=== PATIENT | female | born 1950 | race Caucasian/White ===

== ENCOUNTER 2020-01-31 16:15 | Emergency (ER) | payer BC, OTHER ==
[2020-01-31 16:43] VITALS: BP 150/79; PULSE 104
--- NOTE | 2020-01-31 17:00 | EDM.PDOC ---
ED HPI GENERAL MEDICAL PROBLEM - General Chief Complaint: Respiratory Problem Stated Complaint: FEVER/CHILLS/SORE THROAT Time Seen by Provider: 01/31/20 16:26 Source of Information: Reports: Patient History Limitations: Reports: No Limitations - History of Present Illness INITIAL COMMENTS - FREE TEXT/NARRATIVE: Patient is a 69-year-old female who presents to the emergency department with request of being tested for COVID. She states this last Wednesday which was 4 days ago, she developed fever, chills, body aches, cough, nasal congestion, and sore throat. States that today she is feeling much better and would like to go back to work, however they are requiring a COVID test. States that her fever, chills, body aches, and cough have resolved. She does still have some mild nasal congestion. She denies any shortness of breath. On triage, patient was noted to be very slightly tachycardic at 104, blood pressure minimally elevated at 150/79. Oxygen saturation is 96% on room air. She is afebrile at 97.8 and respiratory rate is 18. Throat Pain Score (Numeric/FACES): 2 - Related Data Allergies Allergy/AdvReac Type Severity Reaction Status Date / Time No Known Allergies Allergy Verified 01/31/20 16:28 Home Meds: Home Meds Meloxicam 15 mg PO DAILY #14 tablet 06/05/16 [Rx] amLODIPine Besylate/Benazepril [Lotrel 10-20 mg Capsule] 1 tab PO DAILY 06/05/16 [History] Past Medical History Cardiovascular History: Reports: Hypertension Social & Family History - Tobacco Use Smoking Status *Q: Never Smoker Second Hand Smoke Exposure: No - Caffeine Use Caffeine Use: Reports: Coffee - Recreational Drug Use Recreational Drug Use: No - Living Situation & Occupation Occupation: Employed ED ROS GENERAL - Review of Systems Review Of Systems: Comprehensive ROS is negative, except as noted in HPI. ED EXAM, GENERAL - Physical Exam Exam: See Below General Appearance: Alert, WD/WN, No Apparent Distress Respiratory/Chest: No Respiratory Distress, Lungs Clear, Normal Breath Sounds, No Accessory Muscle Use, Chest Non-Tender Cardiovascular: Normal Peripheral Pulses, Regular Rate, Rhythm, No Edema, No Gallop, No JVD, No Murmur, No Rub Neurological: Alert, Oriented, CN II-XII Intact, Normal Cognition, Normal Gait, Normal Reflexes, No Motor/Sensory Deficits Psychiatric: Normal Affect, Normal Mood Skin Exam: Warm, Dry, Intact, Normal Color, No Rash Course - Vital Signs Last Recorded V/S: Last Vital Signs Temp 97.8 F 01/31/20 16:25 Pulse 104 H 01/31/20 16:25 Resp 18 01/31/20 16:25 BP 150/79 H 01/31/20 16:25 Pulse Ox 96 01/31/20 16:25 - Orders/Labs/Meds Orders: Active Orders 24 hr Category Date Time Status CORONAVIRUS COVID-19 PCR PHL Routine Lab 01/31/20 16:30 Ordered - Re-Assessments/Exams Free Text/Narrative Re-Assessment/Exam: 01/31/20 16:59 Patient's physical exam was normal. Her lung sounds are clear. Oxygen saturation 96% on room air. Vital signs are stable. We will complete a state lab coronavirus test today. She will be notified of results when available. Discussed that she should continue to self isolate until results are available. Return to ER for any worsening symptoms. Departure - Departure Time of Disposition: 16:59 Disposition: Home, Self-Care 01 Condition: Good Clinical Impression: Viral respiratory illness - Discharge Information *PRESCRIPTION DRUG MONITORING PROGRAM REVIEWED*: No *COPY OF PRESCRIPTION DRUG MONITORING REPORT IN PATIENT STEFANY: No Instructions: Viral Respiratory Infection, [id number] Referrals: PCP,Not In Area [Primary Care Provider] - Additional Instructions: You were seen in the emergency department today with request to be tested for Covid19 after having fever, chills, body aches, cough, sore throat and nasal congestion that started on Wednesday. While in the ER, your vital signs were normal. Your oxygen saturation was good. You have been tested for Covid19. The results of this generally take 48 to 72 hours. Recommend that you continue to isolate until results are available. Return to ER for any worsening symptoms. Sepsis Event Note (ED) - Evaluation Sepsis Screening Result: No Definite Risk - Focused Exam Vital Signs: Vital Signs Temp Pulse Resp BP Pulse Ox 01/31/20 16:25 97.8 F 104 H 18 150/79 H 96 - My Orders Last 24 Hours: My Active Orders 01/31/20 16:30 CORONAVIRUS COVID-19 PCR PHL Routine - Assessment/Plan Last 24 Hours: My Active Orders 01/31/20 16:30 CORONAVIRUS COVID-19 PCR PHL Routine
== END 2020-01-31 17:10 | disposition home or self-care (01) ==
LOC: JD.ED 16:15
DX: J98.8 Other specified respiratory disorders (principal); B97.89 Other viral agents as the cause of diseases classified elsewhere; I10 Essential (primary) hypertension; Z79.899 Other long term (current) drug therapy; Z20.828 Contact with and (suspected) exposure to other viral communicable diseases
CPT/HCPCS: 99282; 99283; U0002

== ENCOUNTER 2022-06-05 10:56 | Emergency (ER) | payer MEDICARE, OTHER ==
[2022-06-05 13:23] VITALS: BP 126/77; PULSE 70
== END 2022-06-05 12:58 | disposition home or self-care (01) ==
LOC: JD.ED 10:56
DX: S39.011A Strain of muscle, fascia and tendon of abdomen, initial encounter (principal); R07.89 Other chest pain; I10 Essential (primary) hypertension; X50.9XXA Other and unspecified overexertion or strenuous movements or postures, initial encounter
CPT/HCPCS: 71045; 71045-26; 74018; 74018-26; 81001; 99285

== ENCOUNTER 2023-04-07 09:15 | Emergency (ER) | payer MEDICARE, OTHER ==
[2023-04-07 13:18] VITALS: BP 161/87; PULSE 88
== END 2023-04-07 12:59 | disposition home or self-care (01) ==
LOC: JD.ED 09:15
DX: S83.104A Unspecified dislocation of right knee, initial encounter (principal); M23.91 Unspecified internal derangement of right knee; I10 Essential (primary) hypertension; Z79.899 Other long term (current) drug therapy; X50.0XXA Overexertion from strenuous movement or load, initial encounter
CPT/HCPCS: 73721-26-RT; 73721-RT; 99283

== ENCOUNTER 2023-05-08 09:43 | Emergency (ER) | payer OTHER, MEDICARE ==
[2023-05-08 10:15] VITALS: BP 139/74
[2023-05-08 10:44] LABS: BASOPHILS ABSOLUTE AUTO 0.1 K/mm3 (0.0-0.2); BASOPHILS PERCENT AUTO 0.7 % (0.0-1.0); EOSINOPHILS ABSOLUTE AUTO 0.2 K/mm3 (0.0-0.4); EOSINOPHILS PERCENT AUTO 1.9 % (0.0-6.0); IMMATURE GRAN ABSOLUTE AUTO 0.02 K/mm3 (0.00-0.05); IMMATURE GRAN PERCENT AUTO 0.2 % (0.0-0.4); LYMPHOCYTES ABSOLUTE AUTO 0.9 K/mm3 (1.0-4.8); LYMPHOCYTES PERCENT AUTO 10.2 % (24.0-44.0); MEAN CORPUSCULAR HEMOGLOBIN 31.4 pg (28.0-32.0); MEAN CORPUSCULAR HGB CONC 33.3 g/dl (32.0-36.0); MEAN CORPUSCULAR VOLUME 94.2 fl (83.0-99.0); MEAN PLATELET VOLUME 11.8 fl (9.4-12.3); MONOCYTES ABSOLUTE AUTO 0.5 K/mm3 (0.0-0.8); MONOCYTES PERCENT AUTO 5.8 % (0.0-8.0); NEUTROPHILS ABSOLUTE AUTO 7.4 K/mm3 (1.8-7.7); NEUTROPHILS PERCENT AUTO 81.2 % (41.0-71.0); PLATELET COUNT,PLT 162 K/mm3 (150-400); RED BLOOD CELL COUNT 4.46 M/mm3 (4.10-5.30); WHITE BLOOD CELL COUNT,WBC 9.12 K/mm3 (3.9-11.3)
[2023-05-08 11:02] LABS: ALBUMIN 3.9 g/dl (3.4-5.0); ANION GAP 14.4 (5-15); BILIRUBIN TOTAL 0.6 mg/dL (0.2-1.0); BUN/CREATININE RATIO 18.8 (14-18); CALCIUM 9.1 mg/dL (8.5-10.1); CREATININE 0.8 mg/dL (0.55-1.02); EST CRCL DRUG DOSING (CG) 59.51 mL/min; MAGNESIUM 1.7 mg/dL (1.8-2.4); POTASSIUM,K 3.4 mEq/L (3.5-5.1); PROTEIN TOTAL,TP 7.7 g/dl (6.4-8.2)
[2023-05-08 11:03] LABS: APPEARANCE,URINE CLEAR (Clear); BILIRUBIN,URINE NEGATIVE (Negative); COLOR,URINE YELLOW (Yellow); GLUCOSE,URINE NEGATIVE (Negative); KETONES,URINE NEGATIVE (Negative); LEUKOCYTE ESTERASE,URINE TRACE (Negative); NITRITE,URINE NEGATIVE (Negative); OCCULT BLOOD,URINE NEGATIVE (Negative); PROTEIN,URINE NEGATIVE (Negative); UROBILINOGEN,URINE 0.2 (0.2-1.0)
[2023-05-08 11:10] LABS: BACTERIA,URINE FEW /hpf (FEW); EPITHELIAL CELLS,URINE 0-5 /hpf (0-5); MUCUS,URINE MANY /hpf (FEW); RBC,URINE 0-5 /hpf (0-5)
[2023-05-08] MEDS ORDERED: Sulfamethoxazole/Trimethoprim 800-160 MG Tab PO ONE (11:16)
[2023-05-08 12:16] VITALS: PULSE 98
== END 2023-05-08 11:45 | disposition home or self-care (01) ==
LOC: JD.ED 09:43
DX: N30.00 Acute cystitis without hematuria (principal); E83.42 Hypomagnesemia; I10 Essential (primary) hypertension; Z79.899 Other long term (current) drug therapy
CPT/HCPCS: 36415; 80053; 81001; 83735; 85025; 99284; A9270; 99283

== ENCOUNTER 2023-10-18 15:02 | Emergency (ER) | payer MEDICARE, OTHER ==
[2023-10-18] MEDS: Orphenadrine 60 MG/2 ML Inj IM ONE (16:30)
[2023-10-18 17:00] LABS: APPEARANCE,URINE CLEAR (Clear); BILIRUBIN,URINE NEGATIVE (Negative); COLOR,URINE YELLOW (Yellow); GLUCOSE,URINE NEGATIVE (Negative); KETONES,URINE TRACE (Negative); LEUKOCYTE ESTERASE,URINE TRACE (Negative); NITRITE,URINE NEGATIVE (Negative); OCCULT BLOOD,URINE NEGATIVE (Negative); PH,URINE 5.5 (5.0-8.0); PROTEIN,URINE 1+ (Negative); UROBILINOGEN,URINE 0.2 (0.2-1.0)
[2023-10-18 17:47] LABS: BACTERIA,URINE FEW /hpf (FEW); MUCUS,URINE MANY /hpf (FEW); RBC,URINE 0-5 /hpf (0-5)
[2023-10-18 19:36] VITALS: BP 135/68; PULSE 78
== END 2023-10-18 18:35 | disposition home or self-care (01) ==
LOC: JD.ED 15:02
DX: M54.18 Radiculopathy, sacral and sacrococcygeal region (principal); I10 Essential (primary) hypertension; Z90.49 Acquired absence of other specified parts of digestive tract; Z79.899 Other long term (current) drug therapy
CPT/HCPCS: 0352U; 81001; 81003; 87086; 96372; 99283; J2360

== ENCOUNTER 2025-04-24 08:20 | Emergency (ER) | payer MEDICARE ==
[2025-04-24 10:07] LABS: BASOPHILS ABSOLUTE AUTO 0.1 K/mm3 (0.0-0.2); BASOPHILS PERCENT AUTO 1.1 % (0.0-1.0); EOSINOPHILS ABSOLUTE AUTO 0.1 K/mm3 (0.0-0.4); EOSINOPHILS PERCENT AUTO 1.7 % (0.0-6.0); IMMATURE GRAN ABSOLUTE AUTO 0.01 K/mm3 (0.00-0.05); IMMATURE GRAN PERCENT AUTO 0.2 % (0.0-0.4); LYMPHOCYTES ABSOLUTE AUTO 1.3 K/mm3 (1.0-4.8); LYMPHOCYTES PERCENT AUTO 27.7 % (24.0-44.0); MEAN PLATELET VOLUME 13.2 fl (9.4-12.3); MONOCYTES ABSOLUTE AUTO 0.3 K/mm3 (0.0-0.8); MONOCYTES PERCENT AUTO 6.3 % (0.0-8.0); NEUTROPHILS ABSOLUTE AUTO 2.9 K/mm3 (1.8-7.7); NEUTROPHILS PERCENT AUTO 63.0 % (41.0-71.0); NRBC ABSOLUTE 0.00 (0.00-0.02); NRBC PERCENT 0.0 % (0.0-0.2); PLATELET COUNT,PLT 122 K/mm3 (150-400); RED BLOOD CELL COUNT 4.50 M/mm3 (4.10-5.30); WHITE BLOOD CELL COUNT,WBC 4.62 K/mm3 (3.9-11.3)
[2025-04-24 10:09] LABS: APPEARANCE,URINE CLEAR (Clear); GLUCOSE,URINE NEGATIVE (Negative); OCCULT BLOOD,URINE NEGATIVE (Negative)
[2025-04-24 10:19] LABS: SQUAMOUS EPITHELIAL CELLS,UR 0-5 /hpf (0-5)
[2025-04-24 10:38] LABS: A/G RATIO 1.2 (1-2); ALANINE AMINOTRANSFERASE,ALT 21.0 U/L (14-59); ASPARTATE AMNIOTRANSFERASE,AST 15.0 U/L (15-37); BILIRUBIN TOTAL 0.4 mg/dL (0.2-1.0); BLOOD UREA NITROGEN,BUN 17.0 mg/dL (7-18); CARBON DIOXIDE,CO2 28.0 mEq/L (21-32); CHLORIDE,CL 107.0 mEq/L (98-107); CREATININE 0.8 mg/dL (0.55-1.02); EST CRCL DRUG DOSING (CG) 57.75 mL/min; ESTIMATED GFR 77.0 mL/min (>60); GLUCOSE RANDOM 117.0 mg/dL (70-99); POTASSIUM,K 3.5 mEq/L (3.5-5.1); PROTEIN TOTAL,TP 7.1 g/dl (6.4-8.2); SODIUM,NA 144.0 mEq/L (136-145); TROPONIN I HIGH SENSITIVITY 8.0 pg/mL (<=51)
[2025-04-24] MEDS: Iopamidol 612 MG/ML 100 ML Bottle IVPUSH ONE (11:44)
[2025-04-24] MEDS: Sodium Chloride 0.9% 10 ML Syringe FLUSH ONE (11:44)
[2025-04-24 14:06] VITALS: BP 148/77; PULSE 84
== END 2025-04-24 14:00 | disposition home or self-care (01) ==
LOC: JD.ED 08:20
DX: R10.12 Left upper quadrant pain (principal); K76.9 Liver disease, unspecified; I10 Essential (primary) hypertension; Z79.899 Other long term (current) drug therapy
CPT/HCPCS: 36415; 74177; 80053; 81001; 83690; 84484; 85025; 93005; 99284; Q9967